=== PATIENT | male | born 1990 | race Caucasian/White ===

== ENCOUNTER → 2022-04-04 | Outpatient (CLI) | payer BC ==
--- NOTE | 2022-04-04 10:48 | Diagnostic Imaging Report ---
CLINICAL INDICATION: Patient pressure to right eye x3 years. EXAM: Axial CT scan of the IAC performed without IV contrast. Sagittal and coronal reformatted images are created. Auto Exposure Controls were utilized during the CT exam to meet ALARA standards for radiation dose reduction. COMPARISON: None. FINDINGS: There is limited visualization of the middle ear ossicles due to bony resolution. There appears to be very minimal debris within the right external auditory canal near the tympanic membrane. Otherwise, the remainder of the temporal bone structures are unremarkable. The mastoid air cells are clear. The IACs, inner ears, middle ears, and external auditory canals are unremarkable. The oval and round windows are patent. There is no evidence of semicircular canal dehiscence. The visualized temporal bone portions of cranial nerve VII has normal appearance. No evidence of aberrant vascular structures. The vestibular aqueducts have normal appearance bilaterally. There is large amounts of mucosal thickening involving left maxillary sinus. There is mild mucosal thickening involving right maxillary sinus. There is minimal mucosal thickening involving ethmoid sinus and sphenoid sinus. 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 IMPRESSION: 1: There is limited visualization of the middle ear ossicles due to bony resolution. 2: There is very minimal debris within the right external auditory canal near the tympanic membrane. Otherwise unremarkable CT scan of the temporal bones. 3: Paranasal sinus disease. Dictated by: Dictated on workstation # [id number]
== END ==
LOC: RAD 09:45
PROVIDERS: ATTEND Otolaryngology Otolaryngology/Facial Plastic Surgery
DX: J34.89 Other specified disorders of nose and nasal sinuses (principal)
CPT/HCPCS: 70480